=== PATIENT | female | born 1940 | race Caucasian/White ===

== ENCOUNTER 2017-01-22 09:27 | Emergency (ER) | payer OTHER ==
[~2017-01-22] VITALS: Ht 162.6 cm; Wt 68.8 kg
[~2017-01-22 09:27] MED LIST: CALCIUM PO; CO Q-10100 MG PO; FISH OIL OMEGA1 EACH PO; HYDROCODON-ACE1 EAC7 PO; IRON325 MG PO; LOVENOX40 MG/0.4 SC; MULTIPLE VITAM1 EACH PO; PRESERVISION T1 EACH PO; STOOL SOFTENER100 M1 PO; TYLENOL REGULA325 MG PO; VITAMIN D1000 INTUN PO; ZYRTEC10 M2 PO
[2017-01-22] MEDS ORDERED: TYLENOL EXTRA500 MG PO (12:38)
[2017-01-22 12:45] VITALS: BP 121/58
== END 2017-01-22 12:47 | disposition home or self-care (01) ==
LOC: EME 09:27
DX: S00.83XA Contusion of other part of head, initial encounter (principal); W01.198A Fall on same level from slipping, tripping and stumbling with subsequent striking against other object, initial encounter; Z96.653 Presence of artificial knee joint, bilateral; Z96.643 Presence of artificial hip joint, bilateral
CPT/HCPCS: 70450; 72125; 99281; 99284